=== PATIENT | female | born 1950 | race Caucasian/White ===

== ENCOUNTER 2017-04-01 23:20 | Emergency (ER) | payer MEDICARE, OTHER | END 2017-04-02 00:47 | disposition home or self-care (01) | LOC: ER 23:20 | PROC: 2W3SX1Z Immobilization of Right Foot using Splint (ICD-10-PCS; principal; 2017-04-01) | DX: S92.211A Displaced fracture of cuboid bone of right foot, initial encounter for closed fracture (principal); I10 Essential (primary) hypertension; Z88.8 Allergy status to other drugs, medicaments and biological substances; Z90.49 Acquired absence of other specified parts of digestive tract; W10.9XXA Fall (on) (from) unspecified stairs and steps, initial encounter | CPT/HCPCS: 73610-RT; 73630-RT; 99283; A9270-GY ==